=== PATIENT | female | born 1985 | race Caucasian/White ===

== ENCOUNTER 2023-06-05 00:35 | Emergency (ER) | payer OTHER ==
[2023-06-05] MEDS ORDERED: fentaNYL 50 mcg/mL 1 mL Vial ONE (00:45)
[2023-06-05] MEDS ORDERED: Ondansetron PF 4 MG/2 ML Vial ONE (00:45)
[2023-06-05] MEDS ORDERED: Iopamidol-370 76% 500 ML MDV (1 ML CHARGE) ONE (11:54)
== END 2023-06-05 03:46 | disposition home or self-care (01) ==
LOC: ERS 00:35
DX: S20.212A Contusion of left front wall of thorax, initial encounter (principal); E11.9 Type 2 diabetes mellitus without complications; I10 Essential (primary) hypertension; V89.2XXA Person injured in unspecified motor-vehicle accident, traffic, initial encounter; Y92.410 Unspecified street and highway as the place of occurrence of the external cause
CPT/HCPCS: 71260; 74177; 96374; 96375; G0390; J2405; J3010; Q9967